=== PATIENT | male | born 1940 | race Caucasian/White ===

== ENCOUNTER 2016-02-23 12:52 | Inpatient (IN) | payer MEDICARE, OTHER ==
[~2016-02-23] VITALS: Ht 165.1 cm; Wt 86.9 kg
[2016-02-23 13:06] VITALS: BP 107/38; PULSE 98; RESP 22; O2SAT 94
--- NOTE | 2016-02-23 13:15 | ED.REPORT ---
HPI-Neurologic Deficit Date of Service Feb 23, 2016 ED Provider: Madhu Hahn Patient is a 75 year old male who presents to the ED complaining of a possible stroke onset 4 days ago. Associated symptoms include dizziness, slurred and slow speech, bilateral leg weakness, neck pain, myalgia, trouble walking, diarrhea, low blood sugar (onset one month ago), and a 30 lb weight loss over the last month. He denies vomiting, cough, melena, or any other symptoms. He recently returned from [facility] with his after a month long trip. Nursing Notes Stated Complaint: POSS STROKE Chief Complaint: Neuro Symptoms/ Deficits Nursing Notes Reviewed: Yes Allergies: Coded Allergies: No Known Allergies (Verified , 02/23/16) General Time Seen by Provider: 13:14 Chief Complaint Mental status change Hx Obtained From: Patient, Spouse Arrived By: Walk-in Sudden in Onset?: Yes Onset Occurred: 4 days ago Symptom Duration: Since onset Past Medical History Past Medical History Reports: Diabetes mellitus, Hypertension Past Surgical History Denies Smoking History Former Smoker Social History Other Social History: Good social support, Ambulatory Status Wheelchair (Due to trouble walking ) Review of Systems +chronic low blood sugar Constitutional: Reports: Recent wt loss, Denies: Fever Respiratory: Denies: Non-productive cough GI: Reports: Diarrhea, Denies: Melena, Vomiting Musculoskeletal: Reports: Myalgia, Neck pain Neurologic: Reports: Dizziness, Problem walking, Slurred speech, Weakness ( Bilateral, legs ) Complete sys rev & neg: except as marked. Physical Exam Initial Vital Signs Vital Signs (First) Date Time Temp Pulse Resp B/P Pulse Ox O2 Delivery O2 Flow Rate FiO2 02/23/16 13:06 36.3 98 22 107/38 94 Room Air Initial VS: Reviewed Neck: Full range of motion Abdomen / GI: Soft, Non-tender Skin: Warm, Dry Psychiatric: Mood/affect normal, Behavior normal General/Constitutional: Awake, Well appearing, Well developed Tremulous Head / Eyes: Atraumatic, Normocephalic Respiratory / Chest: No respiratory distress Cardiovascular: Heart rate NL, Regular rhythm Speech: Positive: Slurred (Mildly) Slightly disoriented to time Interpretation & Diagnostics Last Creatinine was 1.0 (one month ago) Lab Results Interpretation Result Diagram: 02/23/16 1351 02/23/16 1351 Test 02/23/16 13:51 02/23/16 15:55 White Blood Count 6.7th/mm3 (3.8-10.1) Red Blood Count 4.19mil/mm3 (4.40-5.80) Hemoglobin 11.8g/dL (13.8-17.2) Hematocrit 36.5% (41.0-50.0) Mean Corpuscular Volume 87.1fL (81-100) Mean Corpuscular Hemoglobin 28.2pg (27.0-35.0) Mean Corpuscular Hemoglobin Concent 32.3% (32.0-37.0) Red Cell Distribution Width 17.4% (12.3-15.4) Platelet Count 149bil/L (150-400) Neutrophils (%) (Auto) 82.8% (40-74) Lymphocytes (%) (Auto) 11.1% (14-46) Monocytes (%) (Auto) 5.2% (4-12) Eosinophils (%) (Auto) 0.7% (0-5) Basophils (%) (Auto) 0.1% (0-3) Sodium Level 135mEq/L (134-144) Potassium Level 9.0mEq/L (3.5-5.2) Chloride Level 111mEq/L (97-108) Carbon Dioxide Level 9mmol/L (18-29) Blood Urea Nitrogen 86mg/dL (8-27) Creatinine 3.96mg/dL (0.76-1.27) Estimat Glomerular Filtration Rate 16mL/min (>59) Glucose Level 121mg/dL (60-99) Calcium Level 9.0mg/dL (8.5-10.1) Total Bilirubin 0.2mg/dL (0.0-1.2) Aspartate Amino Transf (AST/SGOT) 22U/L (0-50) Alanine Aminotransferase (ALT/SGPT) 26U/L (0-44) Alkaline Phosphatase 101U/L (25-160) Troponin T 0.014ug/L (0.0-0.011) Total Protein 7.9g/dL (6.4-8.4) Albumin 4.2g/dL (3.4-5.0) Hold Patricio Top Tube Received (Received) Urine Color Yellow (YELLOW) Urine Appearance Slightly cloudy Urine pH 5.0 (5.0-8.0) Urine Specific [place] 1.030 (1.003-1.035) Urine Protein Negativemg/dL (NEG,TRACE) Urine Glucose (UA) Negativemg/dL (NEGATIVE) Urine Ketones Negativemg/dL (NEGATIVE) Urine Occult Blood Negative (NEGATIVE) Urine Nitrite Negative (NEGATIVE) Urine Bilirubin Negative (NEGATIVE) Urine Urobilinogen Normalmg/dL (NORMAL) Urine Leukocyte Esterase Negative (NEGATIVE) Urine RBC 0-2/hpf (0-2) Urine WBC 0-5/hpf (0-5) Urine Epithelial Cells None/hpf (NONE-MOD) Urine Crystals None seen (NONE SEEN) Urine Bacteria Few/hpf (NONE-FEW) Urine Hyaline Casts None/lpf (NONE) Urine Granular Casts None seen (NONE SEEN) Urine Waxy Casts None seen (NONE SEEN) Urine Red Blood Cell Casts None seen (NONE SEEN) Urine White Blood Cell Casts None seen (NONE SEEN) Urine Mucus None seen (None Seen) Urine Trichomonas None seen (NONE SEEN) Urine Yeast None (NONE SEEN) Urinalysis Comment Amorphous sediment Urine Culture Reflexed Not indicated ECG Interpretation ECG Interpretation: sinus rate 92 Peaked T waves Time: 13:55 Interpreted by: ED physician X-Ray Chest Interpretation Chest Xray Interpretation: IMPRESSION: No acute cardiopulmonary disease process. Dictated by: Radha Mai MD, PhD on 02/23/2016 at 14:14 Approved by: Radha Mai MD, PhD on 02/23/2016 at 14:14 View: Portable, 1 view Interpretation / Wet Read by: Interpret - Radiologist CT Head Interpretation CT BRAIN: IMPRESSION: No acute intracranial disease process. Dictated by: Radha Mai MD, PhD on 02/23/2016 at 14:38 Approved by: Radha Mai MD, PhD on 02/23/2016 at 14:38 Study: Head CT no contrast Re-Eval/Medical Decision Med Decision/Clinical Course Initial differential diagnosis included some cerebellar stroke or other cause for ataxia, ultimately patient has acute renal failure and hyperkalemia which may be due to this diarrheal illness and hypovolemia. Patient required multiple doses of IV medication for acute lowering of potassium. Will be taken emergently to the interventional suite and then to dialysis. Patient will go to critical care. Re-Evaluation/Progress #1: Time of Eval: 14:12 )( Re-Eval Neurologic Exam: Alert Re-Evaluation/Progress Note: Performed stroke test Re-Evaluation/Progress #2: Time of Eval: 15:20 )( Re-Eval Neurologic Exam: Alert Re-Evaluation/Progress Note: Recheckecd patient. Discussed desire for admission. Patient and spouse understand and agree with plan. All questions addressed at this time. NIH Stroke Scale : Level of Consciousness: Alert and responsive (0) Ask Month & Age: Both questions right (0) (Moderately disoriented to time but figured it out ) Open/Close Eyes/Hand Stock Mover: Performs both tasks (0) Horizontal EO Movements: None (0) Visual Gallagher: No visual loss (0) Facial Palsy: Normal symmetry (0) Right Arm Motor Drift (10s): No drift 10 sec (0) Left Arm Motor Drift (10s): No drift 10 sec (0) Right Leg Motor Drift (5s): No drift 5 sec (0) Left Leg Motor Drift (5s): No drift 5 sec (0) Limb Ataxia FNF/Heel-Corona: No ataxia (0) Sensation (Arms/Legs/Face): No sensory loss (0) Language Aphasia: No aphasia, normal (0) Dysarthria: Slurring intelligible (1) NIHSS Score: 1 Time NIHSS Performed: 14:12 Date NIHSS Performed: Feb 23, 2016 Consultation #1: Referral / Consult Name: Severo Florentino DO Consulted With: Nephrology Call Returned at: 15:20 Research Epidemiologist: Will see patient Note: Discussed patient's case. Suggests contacting radiology about putting in a dialysis line. Consultation #2: Referral / Consult Name: Cathi Galvan MD Consulted With: Hospitalist Call Returned at: 16:12 Research Epidemiologist: Will see patient, Agrees with eval, Agrees with plan, Accepts admit Note: Discussed patient's case. Accepts admit. Consultation #3: Call Returned at: 15:23 Research Epidemiologist: Will see patient Note: Contacted radiologist about putting in dialysis line. Counseled Regarding: Diagnosis, Lab results, Need for admission Discharge & Departure Impression: Primary Impression: Hyperkalemia Additional Impressions: Acute renal failure Diarrhea Disposition: ADMITTED TO HOSPITAL Referrals: Kendall Davis MD (PCP) Crit Care Except Billable Proc Time Spent: 30-74 minutes Services Performed: Patient management by me, Time spent at bedside, Reviewing test results Critical Care Notes: see MDM Scribe Attestation Portions of this note were transcribed by Lily Iglesias. I, Dr. Hahn personally performed the history, physical exam and medical decision-making; I reviewed and confirmed the accuracy of the information in the transcribed note. Signed by: Lily Iglesias 02/23/16, 1708 copies to: Kendall Davis MD, Timothy S DO Feb 23, 2016 13:15 LILY IGLESIAS Feb 23, 2016 13:33
[2016-02-23] MEDS ORDERED: 0.9% Sodium Chloride 1,000 ML IV ONE ×2 (13:33→15:16)
[2016-02-23 14:01] LABS: BASOPHILS % (AUTO) 0.1 % (0-3); EOSINOPHILS % (AUTO) 0.7 % (0-5); MONOCYTES % (AUTO) 5.2 % (4-12); Mean Corpuscular Hemoglobin 28.2 pg (27.0-35.0); Mean Corpuscular Volume 87.1 fL (81-100); NEUTROPHILS % (AUTO) 82.8 % (40-74); Platelet Count 149 bil/L (150-400)
--- NOTE | 2016-02-23 14:15 | DRSVH ---
PROCEDURE: X-RAY CHEST ONE VIEW, PORTABLE ([id number]) INDICATIONS: weakness TECHNIQUE: One view of the chest was acquired. COMPARISON: None. FINDINGS: Surgical changes and devices: None. Lungs and pleura: No pleural effusions or pneumothorax. Lungs are clear. Mediastinum: Mediastinal contours appear normal. Heart size is normal. Bones and chest wall: No suspicious bony lesions. Overlying soft tissues appear unremarkable. IMPRESSION: No acute cardiopulmonary disease process. Dictated by: Radha Mai MD, PhD on 02/23/2016 at 14:14 Approved by: Radha Mai MD, PhD on 02/23/2016 at 14:14
[2016-02-23 14:26] LABS: TROPONIN T 0.014 ug/L (0.0-0.011)
--- NOTE | 2016-02-23 14:39 | DRSVH ---
PROCEDURE: CT BRAIN WITHOUT CONTRAST ([id number]) INDICATIONS: ataxia TECHNIQUE: Noncontrast 4.5 mm thick angled axial sections acquired from the foramen magnum to the vertex, with c oronal reformats. COMPARISON: None. FINDINGS: Image quality: Excellent. CSF spaces: Basal cisterns are patent. No extra-axial fluid collections. The ventricles are symmet bassam in size and shape. Brain: No intracranial bleeds or masses. There is cerebral volume loss for age, with resultant vent ricular and sulcal prominence. There are periventricular and deep white matter chronic small vessel ischemic changes. There is intracranial internal carotid artery atherosclerosis. Skull and face: Calvarium and visualized facial bones appear intact, without suspicious lesions. Sinuses: Mucosal thickening noted in the left frontal sinus. mastoids are clear. IMPRESSION: No acute intracranial disease process. Dictated by: Radha Mai MD, PhD on 02/23/2016 at 14:38 Approved by: Radha Mai MD, PhD on 02/23/2016 at 14:38
[2016-02-23 14:50] VITALS: BP 118/41; PULSE 105; RESP 24; O2SAT 100
[2016-02-23] MEDS ORDERED: Sodium Bicarb (50 mEq) 8.4% 1 mEq/mL 50 mL Syringe IVPUSH ONE (15:20)
[2016-02-23] MEDS ORDERED: Insulin Human REGular-Omnicell 100 Unit/mL IV ONE (15:20)
[2016-02-23] MEDS ORDERED: Albuterol 0.5% (5mg/mL) 20 mL Inhalation Solution NEB ONE (15:20)
[2016-02-23] MEDS ORDERED: 0.9% Sodium Chloride 50 ML ONE (15:35)
--- NOTE | 2016-02-23 15:52 | ABG ---
DateTimeAnalyzed 15:47:00 -_ pH ____7.128 - 7.350 7.450 pCO2 ___22.4__ -mmHg 35.0 45.0 pO2 202 -mmHg 69.0 116 HCO3- ____7.1__ -mmol/L 22.0 26.0 ABE __-21.0__ -mmol/L -2.0 2.0 tHb ___12.1__ -g/dL O2Hb ___96.5__ -% COHb ____0.4__ -% MetHb ____1.4__ -% sO2 ___98.3__ -% 25.0 FIO2 ___21.0__ -% Drawn By MT - Date/Time Notified____ 15:52:00 -_ Notified By MT - Notified Whom ___DR. O'Vane - B 756 -mmHg tO2 ___16.9__ -Vol% Jesus test _Positive -
[2016-02-23] MEDS ORDERED: Heparin 1,000 Unit/mL 10 mL Inj ONE (15:59)
[2016-02-23] MEDS: Calcium GLUCOnate 10% (Gm) 1 Gm/10 mL Inj IVPUSH PRN ×3 (15:59→19:02)
[2016-02-23] MEDS ORDERED: Heparin 5,000 Units/500 mL NS Premix IV ONE (15:59)
[2016-02-23 16:06] VITALS: PULSE 110; RESP 22; O2SAT 94
[2016-02-23 16:27] LABS: APPEARANCE,URINE SLIGHTLY CLOUDY (CLEAR,HAZY); COLOR,URINE YELLOW (YELLOW); OCCULT BLOOD,URINE NEGATIVE (NEGATIVE); UROBILINOGEN,URINE NORMAL (NORMAL)
[2016-02-23] MEDS ORDERED: fentaNYL-PF 50 mCg/mL 2 mL Inj ONE (16:31)
--- NOTE | 2016-02-23 16:43 | CONS ---
[address] [address] CONSULTATION REPORT PATIENT: LOBO PAN : 1940 MR#: [id number] ADMIT: 02/23/2016 JOB ID: [id number] DATE OF SERVICE: HISTORY: The patient is a very pleasant, 75-year-old, white male who was admitted to [facility] Emergency Department for acute kidney injury and acute hyperkalemia. Renal consultation is being sought for further evaluation of his acute kidney injury and electrolyte abnormality. He states that he has recently returned from approximately a month long trip to [facility]. He states for the last several weeks, he has had progressive diarrhea with increased anorexia, nausea, vomiting, and diminished oral intake. He also complains of generalized malaise, weakness, and myalgias. In the emergency department, his potassium was 9 and BUN and creatinine were markedly elevated. He denies a history of any prior renal problems. He does have an approximately two-year history of insulin-requiring diabetes mellitus for which he takes metformin and insulin. There is a questionable history of benign prostatic hypertrophy but no history of any prior hematuria, proteinuria, recurrent urinary tract infections, renal lithiasis, or frequent use of nonsteroidal anti-inflammatories. He states that he has developed a rash on his anterior abdomen but denies any fever or chills. Of note, his medications at time of admission included metformin, spironolactone, lisinopril and metoprolol, all of which can markedly elevate the potassium level. Lab from several months ago showed a BUN and creatinine of 15 and 1.04. His BUN and creatinine at time of admission were 86 and 3.96. His bicarbonate level is also 9. PAST MEDICAL HISTORY: Significant for approximately two-year history of insulin-requiring diabetes mellitus. He also has a history of hypertension with probable hypertensive heart disease, hyperlipidemia, and benign prostatic hypertrophy. He denies history of any prior stroke, seizure, asthma, emphysema, malignancy, or thyroid illness. PAST SURGICAL HISTORY: Noncontributory. ALLERGIES: He is not allergic to any food or any medications. SOCIAL HISTORY: He denies the current use of alcohol, tobacco, or illicit drugs but does have a history of heavy tobacco use until approximately 15 years ago. He is retired and normally is quite active in his activities of daily living. His medications at time of my evaluation include metformin, spironolactone, lisinopril, metoprolol, doxazosin, pravastatin, and insulin. REVIEW OF SYSTEMS: Is detailed above. Otherwise, he denies any severe headache, visual problems, cough, wheezing, fever, or chills. PHYSICAL EXAMINATION: Revealed a mildly obese, somewhat pale-appearing, 75-year-old, white male who was alert and oriented x3, in no distress at time of my evaluation. His blood pressure is 118/41, with a heart rate of 120. HEENT examination is remarkable for some mildly pale sclerae and dry mucous membranes. Neck is supple without adenopathy, thyromegaly, or jugular venous distention. Lungs were clear to auscultation. Heart was regular and rhythmical with a soft systolic murmur. Abdomen was soft and distended with tympanic features noted. There was no tenderness, rebound, guarding, masses or hepatosplenomegaly. Extremities did not show evidence of any clubbing, cyanosis, or edema. Skin turgor is slightly diminished, and there is no evidence of any rashes. LABORATORY EXAMINATION: As noted above. On admission, sodium is 135, potassium was 9, CO2 of 11. Bicarbonate was 20. BUN and creatinine were 86 and 3.96. Glucose is 131. Liver function studies were normal and albumin was 4.2. His white count was 6.7, hemoglobin 11.8, hematocrit 36.5. Platelet count is 149,000 and differential showed 83% segs. Urinalysis is pending at time of this dictation. Electrocardiogram was remarkable for sinus tachycardia, peaked T-waves and diffuse ST-T wave changes throughout the tracing. IMPRESSION: 1. Acute kidney injury secondary to dehydration. 2. Hyperkalemia secondary to #1 and medication. 3. Metabolic acidosis. RECOMMENDATION: 1. I will make arrangements for him to have a temporary dialysis catheter placed and we will do an emergency dialysis treatment on him this evening. I would also like to continue his hydration with half-normal saline with an amp of sodium bicarbonate in this. We also need to closely follow his lab and I hold his spironolactone, lisinopril, metoprolol, and metformin for now. Once again, I would like to thank you for allowing me to participate in the care of this interesting but unfortunate patient, and I will follow him closely with you. CC: Dr. Davis
--- NOTE | 2016-02-23 17:25 | DRSVH ---
PROCEDURE: CV TEMP DIALYSIS INDICATIONS: Acute renal failure. COMPARISON: None. Fluoroscopy time: 0.9 minutes Technique: 1. Conscious sedation for 30 minutes. 2. Ultrasound guided access of the left internal jugular vein. 3. Fluoroscopically-guided temporary hemodialysis catheter placement. The risks and benefits of the procedure were discussed with the patient and his . Consent was obt ained, and placed on the chart. The patient was placed in the supine position on the angiography tabl e. The left neck was prepped and draped in the usual sterile fashion. 1% lidocaine was used to anesth etize skin over the area of interest. Under ultrasound guidance, using a micropuncture kit, the left internal jugular vein was accessed. An 035 wire was advanced with the tip in the IVC. The venotomy wa s serially dilated. A temporary dual-lumen hemodialysis catheter was advanced under fluoroscopy with the tip near the cavoatrial junction. The catheter was secured at the neck with nonabsorbable suture. FINDINGS: Initial ultrasound demonstrates a patent internal jugular vein. Final spot fluoroscopic im age demonstrates the properly placed on tunneled hemodialysis catheter. IMPRESSION: Sonographically and fluoroscopically guided non-tunneled hemodialysis catheter placement. Dictated by: Huma Ramirez M.D. on 02/23/2016 at 17:15 Approved by: Huma Ramirez M.D. on 02/23/2016 at 17:15
[2016-02-23] MEDS ORDERED: Ondansetron 2 mg/mL 2 mL Inj IVPUSH PRN ×2 (17:45→19:25)
[2016-02-23] MEDS ORDERED: Alum-Mag Hydrox-Simeth 30 mL Suspension PO PRN ×2 (17:45→19:25)
[2016-02-23 17:47] VITALS: BP 89/92; PULSE 121; RESP 18; O2SAT 99
[2016-02-23] MEDS ORDERED: ASPI81TA3 PO (18:23)
[2016-02-23] MEDS ORDERED: MULT-1018 PO (18:36)
[2016-02-23] MEDS ORDERED: NPH,100V11 SUBQ ×2 (18:36)
[2016-02-23] MEDS ORDERED: METO50TA3 PO (18:36)
[2016-02-23] MEDS ORDERED: LISI-567 PO (18:36)
[2016-02-23] MEDS ORDERED: METF1000 PO ×2 (18:36)
[2016-02-23] MEDS ORDERED: PRV40T PO (18:36)
--- NOTE | 2016-02-23 19:03 | NUR ---
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 He had a temp dialysis cath placed in labor employment associate and dialysis was started here in CCU by dialysis nurse. He is in ST in the 120's, sats are 98% on room air. His BP initially was in the 100's but has since dropped to lows of 64 sys. He was asymptomatic with this. NS 250cc bolus started and BP increased to 80 sys, order is for 75cc/hr and this will start after the bolus is complete. Pt has supportive and friends at the bedside. Pt denies any pain and is talking and joking with friends and staff.
[2016-02-23] MEDS ORDERED: Polyethylene Glycol (PEG) 17 Gm Powder PO PRN (19:25)
[2016-02-23] MEDS ORDERED: Senna-Docusate 8.6-50 mg Tablet PO PRN (19:25)
[2016-02-23] MEDS ORDERED: Acetaminophen IV 1,000 MG in IV Premix 1 EACH IV PRN (19:25)
[2016-02-23] MEDS ORDERED: Glucose 40% Oral Gel 15 Gm Tube PO PRN (19:35)
[2016-02-23 20:00] VITALS: BP 117/49; PULSE 121; RESP 19; O2SAT 100
--- NOTE | 2016-02-23 20:24 | NUR ---
Dialysis note: S/P catheter placement. 3 hrs tx. Zero net UF. Left temp catheter, dsg changed, sutures intact. Hepatitis serologies drawn. Pls see DTR for VS details, hypotensive at the start of tx, 500 ml NS bolus given by primary RN and BP improved. Qb 300 with catheter limbs reversed A-V V-A due to poor catheter function. No heparin given. O2 @ 2L via NC on. Pt tolerated tx, remained alert and asymptomatic despite low BP at start of tx. Slept at intervals. Catheter flushed, heparin dwelled and secured. Report given to Lakeisha Cuadra RN.
--- NOTE | 2016-02-23 20:58 | PCM.HPMED ---
Subjective Date of Service Feb 23, 2016 Primary Provider: Admitting Physician: Cathi Galvan MD Primary Care Physician: Kendall Davis MD Attending Physician: Cathi Galvan MD Admit Status: From the Emergency Department, Full Admit, Critical Care Chief Complaint: Generalized weakness with decreased urine output History of Present Illness: Leonard Rayo is a 75 year old male with Diabetes, Hypertension, Hyperlipidemia who presents to [facility] emergency department complaining of generalized weakness Patient has not been feeling well for a few weeks. He just arrived back on Tuesday after spending a month in [place] with his daughter who lives there. He has been having diarrhea with loose stools for a few weeks. Going to the bathroom 3-4 times daily. He had associated back pain, dizziness, generalized weakness and decreased appetite. He noted some decreased urine output with some color changes in the urine. Denies any hematuria. He had low blood sugar (onset one month ago), and a 30 lb weight loss over the last month. He denies vomiting, cough, melena. He is diabetic for years. No prior history of kidney problems. No other family members with similar symptoms. He is compliant with all his medications. Review of Systems: Pertinent positives as noted in HPI. All other systems were reviewed and are negative Allergies Coded Allergies: No Known Allergies (Verified , 02/23/16) Home Medications Lisinopril 20 mg bid Metoprolol 50 mg bid Pravastatin 40 mg HS Aspirin 81 mg daily Metformin 1500 mg then 1000 mg NPH 60 units AM + 40 units HS Multivitamin PMH Diabetes type 2 Dyslipidemia Hypertension Surgical History No prior surgeries Family History Father from pneumonia in the 1950s Mother had NE age 50 Social History Hx Alcohol Use: No Hx Substance Use: No Hx Tobacco Use: Yes Smoking Status: Former Smoker Living Arrangement: with Family Exam Vital Signs Vital Sign - Last Date Time Temp Pulse Resp B/P Pulse Ox O2 Delivery O2 Flow Rate FiO2 02/23/16 17:47 36.5 121 18 89/92 99 Room Air Exam General: Alert, Oriented X3, Cooperative, No acute Distress Eyes: PERRLA, Scleral Anicteric Mouth: Mouth Normal, Mucous Membranes Moist/Wren Neck: Supple, no Thyromegaly, trachea central. Chest & Lungs: Clear to auscultation & percussion, No adventitious breath sounds, no crackles, no wheeze Cardiovascular: Normal S1, Normal S2, No Murmurs/Rubs/Gallops, Regular Rate/ Rhythm, (No JVD, no peripheral edema) Pulses: Radial (present and equal), Dorsalis Pedi (present and equal) Abdomen: Soft, Non-tender, Non-distended, Normoactive bowel tones. Musculoskeletal: Unremarkable. Normal range of motion, no swollen or erythematous joints Extremities: No edema, no cyanosis, no clubbing. Skin: No rashes. Warm and dry, no erythematous areas Neurological: Grossly neurologically intact, Normal Speech, Sensation Intact Lymphatic: Lymph nodes Cervical and Axillary not palpable. Lab and Diagnostics Labs Laboratory Tests Test 02/23/16 13:51 02/23/16 15:55 White Blood Count 6.7th/mm3 (3.8-10.1) Red Blood Count 4.19mil/mm3 (4.40-5.80) Hemoglobin 11.8g/dL (13.8-17.2) Hematocrit 36.5% (41.0-50.0) Mean Corpuscular Volume 87.1fL (81-100) Mean Corpuscular Hemoglobin 28.2pg (27.0-35.0) Mean Corpuscular Hemoglobin Concent 32.3% (32.0-37.0) Red Cell Distribution Width 17.4% (12.3-15.4) Platelet Count 149bil/L (150-400) Neutrophils (%) (Auto) 82.8% (40-74) Lymphocytes (%) (Auto) 11.1% (14-46) Monocytes (%) (Auto) 5.2% (4-12) Eosinophils (%) (Auto) 0.7% (0-5) Basophils (%) (Auto) 0.1% (0-3) Sodium Level 135mEq/L (134-144) Potassium Level 9.0mEq/L (3.5-5.2) Chloride Level 111mEq/L (97-108) Carbon Dioxide Level 9mmol/L (18-29) Blood Urea Nitrogen 86mg/dL (8-27) Creatinine 3.96mg/dL (0.76-1.27) Estimat Glomerular Filtration Rate 16mL/min (>59) Glucose Level 121mg/dL (60-99) Calcium Level 9.0mg/dL (8.5-10.1) Total Bilirubin 0.2mg/dL (0.0-1.2) Aspartate Amino Transf (AST/SGOT) 22U/L (0-50) Alanine Aminotransferase (ALT/SGPT) 26U/L (0-44) Alkaline Phosphatase 101U/L (25-160) Troponin T 0.014ug/L (0.0-0.011) Total Protein 7.9g/dL (6.4-8.4) Albumin 4.2g/dL (3.4-5.0) Hold Patricio Top Tube Received (Received) Urine Color Yellow (YELLOW) Urine Appearance Slightly cloudy Urine pH 5.0 (5.0-8.0) Urine Specific [place] 1.030 (1.003-1.035) Urine Protein Negativemg/dL (NEG,TRACE) Urine Glucose (UA) Negativemg/dL (NEGATIVE) Urine Ketones Negativemg/dL (NEGATIVE) Urine Occult Blood Negative (NEGATIVE) Urine Nitrite Negative (NEGATIVE) Urine Bilirubin Negative (NEGATIVE) Urine Urobilinogen Normalmg/dL (NORMAL) Urine Leukocyte Esterase Negative (NEGATIVE) Urine RBC 0-2/hpf (0-2) Urine WBC 0-5/hpf (0-5) Urine Epithelial Cells None/hpf (NONE-MOD) Urine Crystals None seen (NONE SEEN) Urine Bacteria Few/hpf (NONE-FEW) Urine Hyaline Casts None/lpf (NONE) Urine Granular Casts None seen (NONE SEEN) Urine Waxy Casts None seen (NONE SEEN) Urine Red Blood Cell Casts None seen (NONE SEEN) Urine White Blood Cell Casts None seen (NONE SEEN) Urine Mucus None seen (None Seen) Urine Trichomonas None seen (NONE SEEN) Urine Yeast None (NONE SEEN) Urinalysis Comment Amorphous sediment Urine Culture Reflexed Not indicated Microbiology 02/23/16 MRSA Surveillance Culture, Received Pending Result Diagram: 02/23/16 1351 02/23/16 1351 X-Rays, CTs and MRIs CT BRAIN WITHOUT CONTRAST 02/23/16 IMPRESSION: No acute intracranial disease process. Dictated by: Radha Mai MD, PhD on 02/23/2016 at 14:38 Approved by: Radha Mai MD, PhD on 02/23/2016 at 14:38 X-RAY CHEST ONE VIEW, PORTABLE 02/23/16 IMPRESSION: No acute cardiopulmonary disease process. Dictated by: Radha Mai MD, PhD on 02/23/2016 at 14:14 Approved by: Radha Mai MD, PhD on 02/23/2016 at 14:14 Assessment & Plan Leonard Rayo is a 75 year old male with Diabetes, Hypertension, Hyperlipidemia who presents to [facility] emergency department complaining of generalized weakness 1. Acute Kidney Injury. Present on admission Likely due to pre renal azotemia from hypovolemia via diarrhea and decreased PO intake. Patient has risk factors from chronic renal disease with chronic diabetes and hypertension but no prior history mentioned. Also consider Obstructive causes such as BPH given his age. With diarrhea and renal failure, infectious causes should be considered - monitored in the ICU given electrolyte derangements - avoid nephrotoxic insults in hospital - holding Lisinopril - continue dialysis as per Nephrology, catheter in place with no bleeding noted - monitor urine output - stools for C difficile - Dr Florentino following, appreciate his help and consult 2. Acute Hyperkalemia. Present on admission due to renal failure. No evidence of arrhythmia at this time. No Calcium gluconate given - monitor on telemetry - treatment will be with dialysis - consider Kayexalate tonight 3. Diabetes Type 2, Chronic Presumed stable - checking A1c - holding Metformin - low correction Lispro algorithm - holding NPH dose tonight 4. Hypertension presently stable - will resume Metoprolol tomorrow - Acetaminophen as needed for mild pain/fever/headache - Bowel regimen as needed - Antiemetic as needed Patient admitted under inpatient status with expected length of stay > 2 midnights for severity of present symptoms, complexities of treatment plan and risk for adverse event . Resuscitation Status: CPR: Attempt Resuscitation Daniel Kapadia MD Feb 23, 2016 19:39
[2016-02-23] MEDS: Insulin LISPRO 300 Unit/3 mL Inj SUBQ SCH (22:00)
[2016-02-23 23:27] LABS: Mean Corpuscular Hemoglobin 28.5 pg (27.0-35.0); Mean Corpuscular Volume 84.3 fL (81-100)
[2016-02-23 23:50] LABS: Magnesium 1.4 mg/dL (1.6-2.6); Phosphorus 4.7 mg/dL (2.5-4.9)
[2016-02-24] VITALS (8 sets, daily range): BP systolic 128–164; BP diastolic 52–79; PULSE 88–112; RESP 18–21; O2SAT 94–97
[2016-02-24] MEDS ORDERED: Mag Sulf 4 Gm/100 mL IV Premix (Mag < 1.6 & Creat < 2) IV ONE (00:50)
--- NOTE | 2016-02-24 04:24 | NUR ---
P) Hyperkalemia/ARF/ Cardiac Pt.'s potassium level initially 9, after dialysis his potassium was 3.8, his Magnesium level however has dropped to 1.4, and his creatinine is normalizing, now 1.73, urine is jesu and smith in place and draining well, no c/o nausea or pain and no diarrhea so far this shift. Cardiac rhythm continues sinus tach with PVC's, 100-120's, respiratory rate in the low 20's, lungs with clear breath sounds bilat. but very decreased in bases, possibly due to body habitus. I) Mg. rider given per protocol, cont. to monitor, meds per 's orders. E) Resting quietly with eyes closed, friend in attendance, in good spirits.
[2016-02-24 04:45] LABS: BASOPHILS % (AUTO) 0.2 % (0-3); EOSINOPHILS % (AUTO) 0.9 % (0-5); MONOCYTES % (AUTO) 11.3 % (4-12); Mean Corpuscular Hemoglobin 27.5 pg (27.0-35.0); Mean Corpuscular Volume 83.5 fL (81-100); NEUTROPHILS % (AUTO) 74.6 % (40-74); Platelet Count 143 bil/L (150-400)
[2016-02-24] MEDS: Insulin LISPRO 300 Unit/3 mL Inj SUBQ SCH ×4 (08:00→22:00)
--- NOTE | 2016-02-24 10:08 | NUR ---
Evaluation completed. Rec: Thin/Regular. Spoke with MD and RN. STEAM BOX OPERATOR to sign off Please go to "Notes" then click on "Assessments and Notes" (bottom left corner of screen). Then select appropriate discipline tab on top of screen.
--- NOTE | 2016-02-24 12:20 | PCM.PNMED ---
Subjective Date of Service Feb 24, 2016 Subjective The patient feels considerably better and has not and has had a marked improvement in his potassium and renal function with dialysis and hydration. He has not had no further diarrhea however he is also not had any oral intake. He denies any chest pain, shortness of breath, cough, wheezing, nausea, vomiting , fever or chills. Systolic blood pressures are in the 120 to 1:30 range. This last 24 hours he has had 1389 in and 1200 out in urine output. His 40s hemoglobin is 9.5, his sodium is 142, potassium 4.5, chloride 103, CO2 24, BUN and creatinine were 36 1.51 respectively. His magnesium is elevated at 3.3. Exam Vital Signs Vital Sign - Last Date Time Temp Pulse Resp B/P Pulse Ox O2 Delivery O2 Flow Rate FiO2 02/24/16 08:08 36.9 102 18 135/63 95 Room Air Intake and Output 02/23/16 02/23/16 02/24/16 Cumulative From/Thru 15:00 23:00 07:00 02/23/16 13:04 - 02/24/16 06:26 Intake Total 1389 ml 1389 ml Output Total 0 ml 1200 ml 1200 ml Balance 0 ml 189 ml 189 ml Intake IV Total 1389 ml 1389 ml Output Urine Total 1200 ml 1200 ml Ultrafiltrate 0 ml 0 ml Exam HEENT examination is remarkable for pale sclera. Neck is supple without adenopathy thyromegaly or jugular venous distention. Lungs are clear to auscultation. Heart is regular and rhythmical with a soft systolic murmur. Abdomen is soft without any tenderness rebound guarding masses or hepatosplenomegaly. Extremities show significant clubbing cyanosis or edema. Skin turgor is good initial evidence of any rashes. Lab and Diagnostics Result Diagram: 02/24/165 02/24/16 0345 X-Rays, CTs and MRIs CT BRAIN WITHOUT CONTRAST 02/23/16 IMPRESSION: No acute intracranial disease process. Dictated by: Radha Mai MD, PhD on 02/23/2016 at 14:38 Approved by: Radha Mai MD, PhD on 02/23/2016 at 14:38 X-RAY CHEST ONE VIEW, PORTABLE 02/23/16 IMPRESSION: No acute cardiopulmonary disease process. Dictated by: Radha Mai MD, PhD on 02/23/2016 at 14:14 Approved by: Radha Mai MD, PhD on 02/23/2016 at 14:14 Assessment & Plan Impression #1 acute kidney injury secondary to diarrhea and severe intravascular volume depletion which is improving #2 hyperkalemia secondary to acute kidney injury post-multiple medications this is also resolving #3 severe metabolic acidosis which is resolved #4 hypertension with hypertensive heart disease and hypertensive nephrosclerosis #5 hypomagnesemia and #6 ?diabetic nephropathy Recommendations #1 THE patient will not need any further dialysis treatments following his dialysis catheter today. #2 like to continue his IV hydration and start him on his regular diet. #3 once he stabilized A do not see any contraindication for eventually restarting metformin, lisinopril, and possibly spironolactone. We need to continue to follow his lab along with his eyes and nose and he should probably be ready for discharge in 1-2 days. VTE Mechanical Devices: Intermittant Pneumatic CD Resuscitation Status: CPR: Attempt Resuscitation Severo Florentino DO Feb 24, 2016 12:20
--- NOTE | 2016-02-24 14:59 | PCM.PROC ---
Procedure Note Date of Service: Feb 24, 2016 Pre Procedure Diagnosis: Acute kidney injury and severe hyperkalemia. . Post Procedure Diagnosis: Acute kidney injury and severe hyperkalemia. . Procedure: Left central IJ temporary dialysis catheter removal. . Provider and Muskrat Trapper: Resident: Judy Cueva D.O. Attending: Severo Florentino D.O. . Findings: A time-out was completed verifying correct patient, procedure, site, positioning , and special equipment. The patient was placed in the supine position with his head turned to right side. The sutures were removed from catheter. The patient s left neck was sterilized. The patient was instructed to hold his breath and his left central IJ dialysis catheter was removed. Pressure was applied for several minutes to the area and was covered with a bandage. The patient tolerated the procedure well and there were no complications. Estimated Blood Loss: 5 mL. . Judy Cueva DO Feb 24, 2016 14:59
--- NOTE | 2016-02-24 16:48 | DRSVH ---
PROCEDURE: US RENAL SONOGRAM INDICATIONS: vipul TECHNIQUE: Real-time scanning was performed of the kidneys and bladder, with image documentation. COMPARISON: None. FINDINGS: Kidneys: Kidneys are normal in size. Right kidney measures 11.3 cm long; left kidney measures 12.5 cm long. Right renal cortical thickness is 1.0 cm; left renal cortical thickness is 1.6 cm. Renal c ortical echotexture is normal. No hydronephrosis or nephrolithiasis. No suspicious solid mass lesio ns. 1.7 cm simple cyst involving the midpole the right kidney. Bladder: Ramos catheter present. Miscellaneous: No free pelvic fluid. IMPRESSION: Right renal cyst otherwise grossly normal appearance the kidneys. Dictated by: Daljit Lopez RR Interpreted: Vane Santana MD on 02/24/2016 at 16:47 Transcribed by: JAMI on 02/24/2016 at 16:47 Approved by: Vane Santana M.D. on 02/25/2016 at 11:48
--- NOTE | 2016-02-24 17:38 | NUR ---
DOWNGRADE TO PCC Patient remained stable overnight after dialysis, lab values also remain stable. Received orders for patient to downgrade to PCC w/ telemetry monitoring. Tele: SR/ST 90s-100s, and SpO2 96% while awake. No c/o chest pain or SOB, some nausea, but declined medication. He is transferred to room 2004 w/ Miladis Sexton RN.
--- NOTE | 2016-02-24 18:05 | PCM.PNMED ---
Subjective Date of Service Feb 24, 2016 Subjective 75-year-old man with type II diabetes mellitus, hypertension and baseline nephropathy presents with diarrhea and acute kidney injury. States he feels much better today. Primary complaint was extreme weakness. No other focal complaints. He has had diarrhea but only 1-2 episodes in last 24 hours. He has received dialysis with correction of marked electrode disorders. Exam Vital Signs Vital Sign - Last Date Time Temp Pulse Resp B/P Pulse Ox O2 Delivery O2 Flow Rate FiO2 02/24/16 17:18 97 02/24/16 17:14 Supplement Oxygen 02/24/16 12:30 36.7 18 131/79 96 Intake and Output 02/23/16 02/23/16 02/24/16 Cumulative From/Thru 15:00 23:00 07:00 02/23/16 13:04 - 02/24/16 06:26 Intake Total 1389 ml 1389 ml Output Total 0 ml 1200 ml 1200 ml Balance 0 ml 189 ml 189 ml Intake IV Total 1389 ml 1389 ml Output Urine Total 1200 ml 1200 ml Ultrafiltrate 0 ml 0 ml Exam General: Elderly gentleman in no acute distress HEENT: sclerae anicteric, oral mucosa moist Neck: no JVD Chest: clear to auscultation Cardiac: S1S2, no murmur Abdomen: BS normal, non-tender Extremities: No pedal edema Neuro: A&O, cranial nerves symmetric, motor strength 5/5, coordination normal IVs and Medications Medications Reviewed: Medications were reviewed in detail Lab and Diagnostics Result Diagram: 02/24/16 0345 02/24/16 0345 X-Rays, CTs and MRIs CT BRAIN WITHOUT CONTRAST 02/23/16 IMPRESSION: No acute intracranial disease process. Dictated by: Radha Mai MD, PhD on 02/23/2016 at 14:38 Approved by: Radha Mai MD, PhD on 02/23/2016 at 14:38 X-RAY CHEST ONE VIEW, PORTABLE 02/23/16 IMPRESSION: No acute cardiopulmonary disease process. Dictated by: Radha Mai MD, PhD on 02/23/2016 at 14:14 Approved by: Radha Mai MD, PhD on 02/23/2016 at 14:14 PROCEDURE: US RENAL SONOGRAM FINDINGS: Kidneys: Kidneys are normal in size. Right kidney measures 11.3 cm long; left kidney measures 12.5 cm long. Right renal cortical thickness is 1.0 cm; left renal cortical thickness is 1.6 cm. Renal cortical echotexture is normal. No hydronephrosis or nephrolithiasis. No suspicious solid mass lesions. 1.7 cm simple cyst involving the midpole the right kidney. IMPRESSION: Right renal cyst otherwise grossly normal appearance the kidneys. Dictated by: Daljit Lopez RRA Interpreted: Vane Santana MD on 02/24/2016 at 16: 47 . Assessment & Plan Leonard Rayo is a 75 year old male with Diabetes, Hypertension, Hyperlipidemia who presents with generalized weakness after diarrheal illness 1. Acute Kidney Injury. Present on admission Likely due to pre renal azotemia from hypovolemia via diarrhea and decreased PO intake. Patient has risk factors from chronic renal disease with chronic diabetes and hypertension but no prior history mentioned. - avoid nephrotoxic insults in hospital -Resume Lisinopril on 02/24 - Temporary dialysis for acute electrolyte imbalance, as per Nephrology, catheter in place with no bleeding noted - monitor urine output - stools for C difficile 2. Acute Hyperkalemia. Present on admission due to renal failure. Serum potassium 9.0 on admission. Remarkably no peak T waves. No evidence of arrhythmia at this time. No Calcium gluconate given - monitor on telemetry - treatment will be with dialysis - BMP in a.m. 3. Diabetes Type 2, Chronic Presumed stable - checking A1c - holding Metformin - low correction Lispro algorithm - holding NPH dose tonight 4. Hypertension - presently stable - will resume Metoprolol tomorrow 5. Diarrhea. Chronic 4 weeks. - Check stool pathogen PCR including C. difficile - Enteric pathogen precautions until results obtained. - Acetaminophen as needed for mild pain/fever/headache - Bowel regimen as needed - Antiemetic as needed Patient admitted under inpatient status with expected length of stay > 2 midnights for severity of present symptoms, complexities of treatment plan and risk for adverse event VTE Mechanical Devices: Intermittant Pneumatic CD Resuscitation Status: CPR: Attempt Resuscitation Time spent 35 minutes spent in patient assessment in care coordination including review of data with consultants. Rigoberto Puri MD Feb 24, 2016 18:05
[2016-02-25 04:04] VITALS: BP 140/60; PULSE 83; RESP 20; O2SAT 98
--- NOTE | 2016-02-25 04:13 | NUR ---
GI/ Pt Ramos DC's @2029, pt able to void on own by 0000. Pt put out approximately 150cc after Ramos DC's. No c/o of CP, or SOB. VSS and Tele SR
[2016-02-25 07:49] VITALS: BP 114/70; PULSE 83; RESP 20; O2SAT 96
[2016-02-25] MEDS: Insulin LISPRO 300 Unit/3 mL Inj SUBQ SCH (08:00)
--- NOTE | 2016-02-25 08:47 | PCM.DIMED ---
Discharge Instructions Date of Service Feb 25, 2016 Dates of Hospitalization Feb 23, 2016 at 16:18 Discharge Diagnosis Discharge Diagnosis Acute kidney injury; diarrhea with dehydration; hyperkalemia Medication Instructions There were no changes to your usual medications. Your hemoglobin A1c test is 7.3%. This is close to your goal of 7%, but you may discuss changes in diabetes therapy with your primary care doctor. Diet Diabetic Activity No restrictions Call your provider Other (any severe symptoms) Patient Instructions In the event of diarrheal illness, you should be sure to keep up your fluid intake. Follow-up Provider: Kendall Davis MD Follow-up with PCP in: 1 week (for posthospitalization follow-up appointment.) Rigoberto Puri MD Feb 25, 2016 08:47
--- NOTE | 2016-02-25 08:53 | PCM.DC.MED ---
Discharge Summary Date of Service Feb 25, 2016 Dates of Hospitalization Date of Hospital Admission Feb 23, 2016 at 16:18 Date of Discharge: Feb 25, 2016 Providers: Admitting Physician: Cathi Galvan MD Primary Care Physician: Kendall Davis MD Attending Physician: Cathi Galvan MD Diagnosis at Time of Discharge Diagnosis at Time of Discharge Acute kidney injury; diarrhea with dehydration; hyperkalemia Consultations Nephrology, Dr. Severo Florentino Procedures XRay, CTs & MRIs CT BRAIN WITHOUT CONTRAST 02/23/16 IMPRESSION: No acute intracranial disease process. Dictated by: Radha Mai MD, PhD on 02/23/2016 at 14:38 Approved by: Radha Mai MD, PhD on 02/23/2016 at 14:38 X-RAY CHEST ONE VIEW, PORTABLE 02/23/16 IMPRESSION: No acute cardiopulmonary disease process. Dictated by: Radha Mai MD, PhD on 02/23/2016 at 14:14 Approved by: Radha Mai MD, PhD on 02/23/2016 at 14:14 PROCEDURE: US RENAL SONOGRAM FINDINGS: Kidneys: Kidneys are normal in size. Right kidney measures 11.3 cm long; left kidney measures 12.5 cm long. Right renal cortical thickness is 1.0 cm; left renal cortical thickness is 1.6 cm. Renal cortical echotexture is normal. No hydronephrosis or nephrolithiasis. No suspicious solid mass lesions. 1.7 cm simple cyst involving the midpole the right kidney. IMPRESSION: Right renal cyst otherwise grossly normal appearance the kidneys. Dictated by: Daljit Lopez [facility] Interpreted: Vane Santana MD on 02/24/2016 at 16: 47 . Brief History History of Present Illness (per admission note): Leonard Rayo is a 75 year old male with Diabetes, Hypertension, Hyperlipidemia who presents to [facility] emergency department complaining of generalized weakness Patient has not been feeling well for a few weeks. He just arrived back on Tuesday after spending a month in [place] with his daughter who lives there. He has been having diarrhea with loose stools for a few weeks. Going to the bathroom 3-4 times daily. He had associated back pain, dizziness, generalized weakness and decreased appetite. He noted some decreased urine output with some color changes in the urine. Denies any hematuria. He had low blood sugar (onset one month ago), and a 30 lb weight loss over the last month. He denies vomiting, cough, melena. He is diabetic for years. No prior history of kidney problems. No other family members with similar symptoms. He is compliant with all his medications. Hospital Course 1. Acute Kidney Injury. Present on admission. Likely due to pre renal azotemia from hypovolemia via diarrhea and decreased PO intake. Patient has risk factors from chronic renal disease with chronic diabetes and hypertension but no prior history mentioned. No obstructive disease or evidence of chronic nephropathy by ultrasound. - Temporary dialysis for acute electrolyte imbalance, as per Nephrology, catheter is now removed - Resume usual medications including lisinopril and metformin - At time of discharge he appears to have CK D stage II. Urinary dipstick was negative for protein. 2. Acute Hyperkalemia. Present on admission due to renal failure. Serum potassium 9.0 on admission. Remarkably no peak T waves. No evidence of arrhythmia during this hospitalization. No Calcium gluconate given - Resolved 3. Diabetes Type 2, Chronic. Hemoglobin A1c 7.3% - Resume metformin and insulin 4. Hypertension - Blood pressure initially low but returned to approximately 135/70 - No changes in medications 5. Diarrhea. Chronic 4 weeks. - No further diarrhea at this time - Sample was not available for pathogen testing but this seems resolved in any case Exam Vital Signs (Last) Date Time Temp Pulse Resp B/P Pulse Ox O2 Delivery O2 Flow Rate FiO2 02/25/16 07:49 36.8 83 20 114/70 96 Room Air 02/25/16 04:04 2.00 Exam General: Healthy-appearing elderly man no acute distress HEENT: sclerae anicteric, oral mucosa moist Neck: no JVD Chest: clear to auscultation Cardiac: S1S2, no murmur Abdomen: Abdomen firm but BS normal, non-tender Extremities: No pitting edema Neuro: A&O, cranial nerves symmetric, motor strength 5/5, coordination normal Test 02/23/16 13:41 02/23/16 13:51 02/23/16 15:55 02/23/16 18:01 Hemoglobin A1c 7.3% (4.8-5.6) Troponin T 0.014ug/L (0.0-0.011) Hold Patricio Top Tube Received (Received) Urine Color Yellow (YELLOW) Urine Appearance Slightly cloudy Urine pH 5.0 (5.0-8.0) Urine Specific [place] 1.030 (1.003-1.035) Urine Protein Negativemg/dL (NEG,TRACE) Urine Glucose (UA) Negativemg/dL (NEGATIVE) Urine Ketones Negativemg/dL (NEGATIVE) Urine Occult Blood Negative (NEGATIVE) Urine Nitrite Negative (NEGATIVE) Urine Bilirubin Negative (NEGATIVE) Urine Urobilinogen Normalmg/dL (NORMAL) Urine Leukocyte Esterase Negative (NEGATIVE) Urine RBC 0-2/hpf (0-2) Urine WBC 0-5/hpf (0-5) Urine Epithelial Cells None/hpf (NONE-MOD) Urine Crystals None seen (NONE SEEN) Urine Bacteria Few/hpf (NONE-FEW) Urine Hyaline Casts None/lpf (NONE) Urine Granular Casts None seen (NONE SEEN) Urine Waxy Casts None seen (NONE SEEN) Urine Red Blood Cell Casts None seen (NONE SEEN) Urine White Blood Cell Casts None seen (NONE SEEN) Urine Mucus None seen (None Seen) Urine Trichomonas None seen (NONE SEEN) Urine Yeast None (NONE SEEN) Urinalysis Comment Amorphous sediment Urine Culture Reflexed Not indicated Hepatitis B Surface Antigen Negative (Negative) Hepatitis B Surface Antibody Non reactive (.) Hepatitis B Core Total Antibody Negative (Negative) Hepatitis C Antibody <0.1s/co ratio (0.0-0.9) Test 02/23/16 23:05 02/24/16 03:45 02/25/16 02:43 Phosphorus Level 4.7mg/dL (2.5-4.9) White Blood Count 5.3th/mm3 (3.8-10.1) Red Blood Count 3.46mil/mm3 (4.40-5.80) Hemoglobin 9.5g/dL (13.8-17.2) Hematocrit 28.9% (41.0-50.0) Mean Corpuscular Volume 83.5fL (81-100) Mean Corpuscular Hemoglobin 27.5pg (27.0-35.0) Mean Corpuscular Hemoglobin Concent 32.9% (32.0-37.0) Red Cell Distribution Width 16.3% (12.3-15.4) Platelet Count 143bil/L (150-400) Neutrophils (%) (Auto) 74.6% (40-74) Lymphocytes (%) (Auto) 12.6% (14-46) Monocytes (%) (Auto) 11.3% (4-12) Eosinophils (%) (Auto) 0.9% (0-5) Basophils (%) (Auto) 0.2% (0-3) Magnesium Level 3.3mg/dL (1.6-2.6) Total Bilirubin 0.4mg/dL (0.0-1.2) Aspartate Amino Transf (AST/SGOT) 20U/L (0-50) Alanine Aminotransferase (ALT/SGPT) 19U/L (0-44) Alkaline Phosphatase 77U/L (25-160) Total Protein 5.6g/dL (6.4-8.4) Albumin 3.3g/dL (3.4-5.0) Sodium Level 139mEq/L (134-144) Potassium Level 4.8mEq/L (3.5-5.2) Chloride Level 104mEq/L (97-108) Carbon Dioxide Level 26mmol/L (18-29) Blood Urea Nitrogen 22mg/dL (8-27) Creatinine 1.06mg/dL (0.76-1.27) Estimat Glomerular Filtration Rate 73mL/min (>59) Glucose Level 146mg/dL (60-99) Calcium Level 7.8mg/dL (8.5-10.1) Discharge Medications Discharge Medications Aspirin Chew (Aspirin Chew) 81 Mg Chew 81 MG PO DAILY (Reported) Lisinopril (Lisinopril) 20 Mg Tablet 20 MG PO BID (Reported) Metformin (Glucophage) 1,000 Mg Tablet 1,500 MG PO DAILYWD (Reported) Metformin (Glucophage) 1,000 Mg Tablet 1,000 MG PO QAM (Reported) Metoprolol Tartrate (Metoprolol Tartrate) 50 Mg Tablet 50 MG PO BID (Reported) Multivitamin (Multi Vitamin Daily) 1 Each Tablet 1 EACH PO DAILY (Reported) NPH, Human Insulin Isophane (HUMulin-N U100 Insulin Vial) 100 Unit/1 Ml Vial 60 UNIT SUBQ QAM (Reported) NPH, Human Insulin Isophane (HUMulin-N U100 Insulin Vial) 100 Unit/1 Ml Vial 40 UNIT SUBQ HS (Reported) Pravastatin (Pravachol) 40 Mg Tablet 40 MG PO HS (Reported) Additional med instructions There were no changes to your usual medications. Your hemoglobin A1c test is 7.3%. This is close to your goal of 7%, but you may discuss changes in diabetes therapy with your primary care doctor. Followup Plan Disposition: Home Follow-up plan Routine PCP follow-up Discharge Diet: Diabetic Discharge Activity: No restrictions Patient Instructions In the event of diarrheal illness, you should be sure to keep up your fluid intake. Follow-up Provider: Kendall Davis MD Follow-up with PCP in: 1 week (for posthospitalization follow-up appointment.) Time spent 25 minutes copies to: Kendall Davis MD, Jeffrey W MD Feb 25, 2016 08:53
--- NOTE | 2016-02-25 10:06 | NUR ---
Social Work Note: Initial Assessment/Discharge Data& Assessment: EMR reviewed. Per pt is medically ready, SW role explained. Per MD, pt medically ready for discharge. Ciara Rayo is a 75 year old male admitted on 02/23/2016 for ARF and hyperkalemia. Pt sees Kendall Renterai MD for primary care. Pt lives with his spouse in [place] and is independent at baseline. Pt does manage his medications. Pt and pt own a walker and a cane but pt does not use them. Pt drives. Pt lives in a single story home. Pt has DPOA paperwork completed, SW requested a copy when possible. Pt denies HH or SNF hx. Pt is a but not service connected. Pt denies LTC insurance. Pt confirmed she is able to transport home today. Pt and pt deny any other needs. No other discharge needs identified. Plan: Per pt is medically ready for discharge. Pt confirmed she is able to transport home today. Pt and pt deny any other needs. No other discharge needs identified. SILVANO Clemons Addendum: 02/25/16 at 1012 by JEAN CARLOS MALIK Amended: Links added.
--- NOTE | 2016-02-25 11:23 | NUR ---
Discharge Pt discharged home at 1035. To be transported by POV. IV's dc'd intact, telemetry removed and tech notified. Pt discharge instructions and follow up appointments were reviewed. Pt had no new medications to review. All pt's questions were answered. Pt voiced understanding. Pt's belongings were gathered and taken home by . Pt was accompanied to his vehicle by RN.
--- NOTE | 2016-02-25 11:50 | PCM.PNMED ---
Subjective Date of Service Feb 25, 2016 Subjective Patient continues to improve and is scheduled for discharge today. His systolic blood pressures are running between 120 and 160 and his intake and output are 2205 and 2500. His BUN and creatinine are 22 and 1.06 with a potassium of 4.8. Exam Vital Signs Vital Sign - Last Date Time Temp Pulse Resp B/P Pulse Ox O2 Delivery O2 Flow Rate FiO2 02/25/16 09:04 Supplement Oxygen 02/25/16 07:49 36.8 83 20 114/70 96 02/25/16 04:04 2.00 Intake and Output 02/24/16 02/24/16 02/25/16 Cumulative From/Thru 15:00 23:00 07:00 02/23/16 13:04 - 02/25/16 05:25 Intake Total 816 ml 540 ml 2745 ml Output Total 1300 ml 350 ml 2850 ml Balance -484 ml 190 ml -105 ml Intake Oral 150 ml 540 ml 690 ml IV Total 666 ml 2055 ml Output Urine Total 1300 ml 350 ml 2850 ml Ultrafiltrate 0 ml # Bowel Movements 2 2 Exam Neck is supple without adenopathy thyromegaly or jugular venous distention. Lungs are clear to auscultation. Heart was regular Soft systolic murmur. Abdomen soft without tenderness rebound guarding masses or hepatosplenomegaly. Extremities no shortness of clubbing cyanosis or edema. Skin turgor is good and there is no evidence of any rashes. Lab and Diagnostics Result Diagram: 02/24/16 0345 02/25/16 0243 X-Rays, CTs and MRIs CT BRAIN WITHOUT CONTRAST 02/23/16 IMPRESSION: No acute intracranial disease process. Dictated by: Radha Mai MD, PhD on 02/23/2016 at 14:38 Approved by: Radha Mai MD, PhD on 02/23/2016 at 14:38 X-RAY CHEST ONE VIEW, PORTABLE 02/23/16 IMPRESSION: No acute cardiopulmonary disease process. Dictated by: Radha Mai MD, PhD on 02/23/2016 at 14:14 Approved by: Radha Mai MD, PhD on 02/23/2016 at 14:14 PROCEDURE: US RENAL SONOGRAM FINDINGS: Kidneys: Kidneys are normal in size. Right kidney measures 11.3 cm long; left kidney measures 12.5 cm long. Right renal cortical thickness is 1.0 cm; left renal cortical thickness is 1.6 cm. Renal cortical echotexture is normal. No hydronephrosis or nephrolithiasis. No suspicious solid mass lesions. 1.7 cm simple cyst involving the midpole the right kidney. IMPRESSION: Right renal cyst otherwise grossly normal appearance the kidneys. Dictated by: Daljit BARRIOS Interpreted: Vane Santana MD on 02/24/2016 at 16: 47 . Assessment & Plan Impression #1 acute kidney injury secondary to severe diarrhea and volume depletion which is resolved #2 hyperkalemia which is resolved #3 hypertension with hypertensive heart disease and hypertensive nephrosclerosis number for diabetic nephropathy Recommendations #1 the patient is cleared for discharge however would like to see him back to the office in approximately 2 weeks. He has been instructed that he can resume his medication and a day or so and to make sure he gets adequate fluid intake. Should his diarrhea started up again he is to notify Dr. Davis. VTE Mechanical Devices: Intermittant Pneumatic CD Resuscitation Status: CPR: Attempt Resuscitation Severo Florentino DO Feb 25, 2016 11:50
[2016-06-22] MEDS ORDERED: INS7030 SUBQ (12:57)
== END 2016-02-25 10:34 | disposition home or self-care (01) | DRG 683 ==
LOC: SED 12:52 → PCC 16:18 → CCU 16:20 → PCC 02-24 10:23
PROVIDERS: ADMIT Urology; ATTEND Urology
PROC: 05HN33Z Insertion of Infusion Device into Left Internal Jugular Vein, Percutaneous Approach (ICD-10-PCS; principal; 2016-02-23)
PROC: 4A033R1 Measurement of Arterial Saturation, Peripheral, Percutaneous Approach (ICD-10-PCS; 2016-02-23)
PROC: B544ZZA Ultrasonography of Left Jugular Veins, Guidance (ICD-10-PCS; 2016-02-23)
PROC: 5A1D00Z (ICD-10-PCS; 2016-02-23)
DX: N17.8 Other acute kidney failure (principal); E87.2 Acidosis; Z79.82 Long term (current) use of aspirin; Z87.891 Personal history of nicotine dependence; Z79.84 Long term (current) use of oral hypoglycemic drugs; E87.5 Hyperkalemia; E11.9 Type 2 diabetes mellitus without complications; E86.0 Dehydration; R19.7 Diarrhea, unspecified; I12.9 Hypertensive chronic kidney disease with stage 1 through stage 4 chronic kidney disease, or unspecified chronic kidney disease; N18.2 Chronic kidney disease, stage 2 (mild)

== ENCOUNTER 2016-06-23 01:17 | Day surgery (SDC) | payer MEDICARE ==
[~2016-06-23] VITALS: Ht 172.7 cm; Wt 88.0 kg
[~2016-06-23 01:17] MED LIST: ASPI81TA3 PO; INS7030 SUBQ; LISI-567 PO; METO50TA3 PO; PRV40T PO
[2016-06-23] MEDS ORDERED: fentaNYL-PF 50 mCg/mL 2 mL Inj IVPUSH PRN (11:45)
[2016-06-23] MEDS ORDERED: Sodium Chloride LOK Flush 10 mL Syringe IVFLUSH ONE (11:45)
[2016-06-23 13:24] VITALS: BP 156/87; PULSE 84; RESP 16; O2SAT 98
[2016-06-23] MEDS ORDERED: AMLO5TAB2 PO (13:27)
[2016-06-23 15:10] VITALS: BP 158/80; PULSE 63; RESP 14; O2SAT 100
[2016-06-23 15:19] VITALS: BP 156/71; PULSE 80; RESP 14; O2SAT 97
--- NOTE | 2016-06-23 23:49 | ENDO ---
[address] [address] ENDOSCOPY PROCEDURE PATIENT: LOBO PAN : 1940 MR#: [id number] ADMIT: 06/23/2016 JOB ID: [id number] DATE: 06/23/2016 PRIMARY CARE PHYSICIAN: Kendall Davis MD PROCEDURE: Colonoscopy with biopsy and polypectomy COMPLICATIONS: None. EQUIPMENT: PCF H190 DL. SEDATION: Versed 5 mg and fentanyl 75 mcg. PREPARATION QUALITY: fair. Adequate visualization was obtained washing). SPECIMENS: 1. Cecal polyp biopsies. 2. Transverse polyp. 3. Rectal polyp. INDICATIONS/SIGNIFICANT HISTORY: Mr. Mac is a 75-year-old man whose last colonoscopy was in 2006. At that time, he was found to have the sigmoid diverticulosis as well as 1.5 cm descending colon polyp. The final pathology demonstrating tubulovillous adenoma. He was referred for followup screening colonoscopy. DESCRIPTION OF PROCEDURE: The patient was brought to the endoscopy suite and placed in left lateral decubitus position. Sedation was achieved using the above-stated medications with the addition of oxygen administered via nasal cannula. Digital rectal exam was performed and unremarkable. The colonoscope was inserted and passed under direct visualization through into the cecum. The appendiceal orifice was identified and photographed. The ileocecal valve was intubated with a little difficulty. This was also photographed. Immediately adjacent to the ileocecal valve on the cecal side, there was an approximately 2 cm flat friable polyp. In simply getting into the ileocecal valve this knocked a number of fragments off the polyp. I made a prolonged attempt at trying this snare this. However, because of the location, this ultimately proved futile. I attempted even with retroflexed position of camera. Eventually, I elected to try and remove as much of the polyp with cold forceps as possible. There was still some polyp visible after taking multiple bites with the forceps. Scope was then slowly withdrawn, examining the remaining mucosa for any defects or polyps. The quality of the prep was fair with both liquid and semi-solid stool requiring aggressive cleaning. In the transverse colon there was a 3-4 mm well pedunculated polyp which was removed with hot snare. In the descending colon and sigmoid colon, there was extensive diverticulosis. In the rectum at around 10-12 cm, there was a 1.8 cm polyp which was removed with hot snare. This was then dragged out with the colonoscope. Retroflexed views were obtained in the rectum and were unremarkable. The case was then concluded. FINDINGS: 1. An endoscopically unresectable cecal polyp. 2. Transverse colon and rectal polyps- removed. 3. Extensive diverticulosis of the sigmoid and descending colon. RECOMMENDATIONS: Based on the histopathology, I will come up with a plan with the patient to deal with that unresectable polyp. [facility]
--- NOTE | 2016-06-25 17:24 | PATH ---
SURGICAL PATHOLOGY Attending Physician:Osvaldo Harris MD CASE STATUS: Signed Out PATIENT NAME: LOBO PAN PID: [id number] : 1940 DATE COLLECTED:06/23/2016 00:00 SPECIMEN: 1: Colon, Biopsy 2: Colon, Biopsy 3: Rectum, Biopsy CLINICAL HISTORY: 1). CECUM POLYP 2). TRANSVERSE COLON 3). RECTAL POLYP FINAL DIAGNOSIS: 1.CECUM, POLYP, BIOPSY: TUBULOVILLOUS ADENOMA. No evidence of malignancy or high-grade dysplasia. 2.TRANSVERSE COLON, POLYP, BIOPSY: TUBULOVILLOUS ADENOMA. No evidence of malignancy or high-grade dysplasia. 3.RECTUM, POLYP, BIOPSY: TUBULOVILLOUS ADENOMA. No evidence of malignancy or high-grade dysplasia. ICD10 Code D12.0 D12.3 D12.8 GROSS DESCRIPTION: The specimen is received in three formalin filled containers labeled with the patient's name. 1). The specimen is sublabeled "cecum polyp" and consists of multiple portions of tissue which aggregate to 0.6 x 0.4 x 0.3 CM. The specimen is entirely submitted in cassette 1A. 2). The specimen is sublabeled "transverse polyp" and consists of multiple portions of tissue which aggregate to 0.6 x 0.4 x 0.3 CM. The specimen is entirely submitted in cassette tissue A. 3). The specimen is sublabeled "rectal polyp" and consists of a 1.2 x 1.2 x 1.2 CM portion of tissue which is sectioned into 4 pieces and entirely submitted in cassettes 3A, 3B. 06/24/2016 [facility] MICRO DESCRIPTION: See diagnosis. ICD-9 CODES: CPT CODES: 1: 38821 2: 74279 3: 81033 Electronically Signed Out Norah Johnson MD [facility] Pathology [facility] [address], [place] [address] Technical component performed at [facility], [facility] [address], [place], [address]
== END 2016-06-23 23:59 | disposition home or self-care (01) ==
LOC: END 01:17
PROVIDERS: ATTEND General Practice
DX: Z12.11 Encounter for screening for malignant neoplasm of colon (principal); Z86.010 Personal history of colon polyps; D12.0 Benign neoplasm of cecum; D12.3 Benign neoplasm of transverse colon; D12.8 Benign neoplasm of rectum; K57.30 Diverticulosis of large intestine without perforation or abscess without bleeding; I12.9 Hypertensive chronic kidney disease with stage 1 through stage 4 chronic kidney disease, or unspecified chronic kidney disease; N18.2 Chronic kidney disease, stage 2 (mild); E11.22 Type 2 diabetes mellitus with diabetic chronic kidney disease; N25.89 Other disorders resulting from impaired renal tubular function; Z87.891 Personal history of nicotine dependence; Z79.4 Long term (current) use of insulin; Z79.82 Long term (current) use of aspirin
CPT/HCPCS: 45380; 45385; 99153; G0500; J2250; J3010; J7030